=== PATIENT | male | born 1980 | race Hispanic/Latino ===

== ENCOUNTER 2017-11-21 19:07 | Emergency (ER) | payer BC | END 2017-11-21 21:09 | disposition home or self-care (01) | LOC: SCSER 19:07 | DX: R44.0 Auditory hallucinations (principal); R44.1 Visual hallucinations; L25.9 Unspecified contact dermatitis, unspecified cause; Z71.6 Tobacco abuse counseling; F25.9 Schizoaffective disorder, unspecified; F17.210 Nicotine dependence, cigarettes, uncomplicated | CPT/HCPCS: 99406 ==